=== PATIENT | male | born 1955 | race Caucasian/White ===

== ENCOUNTER → 2022-09-24 | Day surgery (SDC) | payer MEDICARE, MEDICAID ==
[~2022-09-24] VITALS: Ht 165.1 cm; Wt 88.6 kg
[~2022-09-24] MED LIST: ASPI-1450 PO; ASPIRIN 81 MG CHEWABLE TABLET ONE; ASPIRIN 81 MG CHEWABLE TABLET PO ONE; ATOR20TA86 PO; CALC0.2521 PO; DIAZEPAM 5 MG TABLET ONE; DIAZEPAM 5 MG TABLET PO ONE; DiphenhydrAMINE HCL 50 MG CAPSULE ONE; DiphenhydrAMINE HCL 50 MG CAPSULE PO ONE; FentaNYL CITRATE PF 100 MCG/2 ML VIAL IVP ONE; FentaNYL CITRATE PF 100 MCG/2 ML VIAL ONE; HEPARIN SODIUM 1000 UNITS/NS 1,000 ML IARTER ONE; HEPARIN SODIUM 1000 UNITS/NS 500 ML ONE; IOHEXOL 300 MG/ML 100 ML VIAL IARTER ONE; IOHEXOL 300 MG/ML 100 ML VIAL ONE; LACT10SO75 PO; LEVO25TA9 PO; LIDOCAINE 1% 30 ML/SOD BICARB 8.4% 4 ML SQ ONE; LIDOCAINE/PF 1% 30 ML VIAL ONE; LINA145C PO; MEMA10TA11 PO; METH-659 PO; MIDAZOLAM HCL 2 MG/2 ML VIAL IVP ONE; MIDAZOLAM HCL 2 MG/2 ML VIAL ONE; PREG25 PO; SEVE800T17 PO; SODIUM BICARBONATE 50 MEQ/50 ML VIAL ONE; SODIUM CHLORIDE 0.9% 1,000 ML IV ONE
[2022-09-24 09:24] LABS: PROTHROMBIN TIME 10.6 SEC (9.4-11.6)
[2022-09-24 09:31] LABS: GLUCOMETER DEV NAME(LOC) SDS.; GLUCOSE,POINT OF CARE 110 MG/DL (70-110)
[2022-09-24 09:41] VITALS: BP 120/64
[2022-09-24 10:56] VITALS: BP 95/56
== END | disposition still patient (30) ==
LOC: CATHLAB 08:23
PROVIDERS: ATTEND Internal Medicine Interventional Cardiology
DX: I25.10 Atherosclerotic heart disease of native coronary artery without angina pectoris (principal); I35.0 Nonrheumatic aortic (valve) stenosis; I10 Essential (primary) hypertension; E78.5 Hyperlipidemia, unspecified; E11.22 Type 2 diabetes mellitus with diabetic chronic kidney disease; N18.4 Chronic kidney disease, stage 4 (severe); Z86.73 Personal history of transient ischemic attack (TIA), and cerebral infarction without residual deficits; Z79.01 Long term (current) use of anticoagulants; Z79.899 Other long term (current) drug therapy; E66.9 Obesity, unspecified; Z83.3 Family history of diabetes mellitus; Z82.49 Family history of ischemic heart disease and other diseases of the circulatory system
CPT/HCPCS: 93458; 82962; 85610; 85730; 36415; 99152; 99153; 93005; J3010; J1644; J3490 ×2; J2250; Q9967